=== PATIENT | female | born 1985 | race Two or more races ===

== ENCOUNTER 2019-02-05 22:49 | Emergency (ER) | payer MEDICAID ==
[~2019-02-05] VITALS: Ht 157.5 cm; Wt 62.6 kg
[2019-02-05 23:09] VITALS: BP 136/81
== END 2019-02-06 01:00 | disposition left against medical advice (07) ==
LOC: ER 22:58
DX: O99.89 Other specified diseases and conditions complicating pregnancy, childbirth and the puerperium (principal); M54.2 Cervicalgia; M54.9 Dorsalgia, unspecified; Z3A.14 14 weeks gestation of pregnancy; Z53.21 Procedure and treatment not carried out due to patient leaving prior to being seen by health care provider